=== PATIENT | female | born 1960 | race Caucasian/White ===

== ENCOUNTER 2021-02-09 02:10 | Emergency (ER) | payer OTHER ==
[~2021-02-09] VITALS: Ht 147.3 cm; Wt 129.3 kg
[2021-02-09] MEDS ORDERED: TYLENOL EXTRA500 MG PO (02:27)
[2021-02-09] MEDS ORDERED: SUPER THERAVIT1 EACH PO (02:28)
[2021-02-09] MEDS ORDERED: GLYCOTROL CAPS1 EACH PO (02:28)
[2021-02-09] MEDS ORDERED: MAGNESIUM250 M1 PO (02:29)
[2021-02-09 03:04] LABS: ABSOLUTE BASOPHILS 0.3 thou/uL (0.0-0.2); ABSOLUTE EOSINOPHILS 0.6 thou/uL (0.0-0.7); ABSOLUTE LYMPHOCYTES 2.4 thou/uL (0.8-5.3); ABSOLUTE MONOCYTES 0.9 thou/uL (0.0-1.2); ABSOLUTE NEUTROPHILS 11.4 thou/uL (1.6-8.1); APTT 26.1 Seconds (25.0-31.3); BASOPHILS 1.6 %; HEMATOCRIT 41.6 % (37.0-47.0); HEMOGLOBIN 13.5 gm/dL (12.0-15.0); INR 0.9; LYMPHOCYTES 15.1 %; MCH 29.2 pg (26.0-34.0); MCHC 32.6 g/dL (28.0-37.0); MCV 89.6 fL (80.0-100.0); NUCLEATED RBCS 0 /100WBC; PLATELET COUNT* 407 thou/uL (150-400); POLYS 73.3 %; RBC 4.64 mil/uL (4.20-5.00); RDW-CV 13.8 % (10.5-14.5); WBC 15.6 thou/uL (4.0-11.0)
[2021-02-09 03:27] LABS: BE -2.6 mmol/L (-2 to +3); PCO2 VENOUS 43.8 mmHg (41.0-51.0)
[2021-02-09 03:51] LABS: CALCIUM 9.6 mg/dL (8.5-10.1); CREATININE 1.2 mg/dL (0.6-1.3); POTASSIUM 3.9 mmol/L (3.5-5.1)
[2021-02-09 03:55] LABS: ALBUMIN 3.4 g/dL (3.4-5.0); TOTAL BILIRUBIN 0.3 mg/dL (<0.1-1.0); TOTAL PROTEIN 7.7 g/dL (6.4-8.2)
[2021-02-09 06:08] VITALS: BP 124/52
--- NOTE | 2021-02-09 11:07 | EKG ---
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: [place] : 1960 Requested By: Cristel Luu Order Number: [id number] MD: Peng Colón Measurements Intervals [place] Rate: 84 P: 48 CO: 164 QRS: 12 QRSD: 100 T: 28 QT: 370 QTc: 438 Interpretive Statements Sinus rhythm Left atrial enlargement Low voltage, precordial leads Left ventricular hypertrophy Baseline wander in lead(s) V2 No previous ECG available for comparison Electronically Signed On 02-09-2021 11:06:45 CDT by Peng Colón [email or web address] <ELECTRONICALLY SIGNED> By: Peng Colón MD, FAC 02/09/21 1106 Peng Colón MD, [facility] /EPI
== END 2021-02-09 06:08 | disposition home or self-care (01) ==
LOC: M.ERS 02:10
PROVIDERS: Personal Emergency Response Attendant
DX: E11.65 Type 2 diabetes mellitus with hyperglycemia (principal); I11.0 Hypertensive heart disease with heart failure; I50.9 Heart failure, unspecified; E78.5 Hyperlipidemia, unspecified; E03.9 Hypothyroidism, unspecified; E66.01 Morbid (severe) obesity due to excess calories; Z68.43 Body mass index [BMI] 50.0-59.9, adult